=== PATIENT | male | born 2000 ===

== ENCOUNTER 2020-10-20 16:34 | Emergency (ER) | payer SELFPAY ==
[2020-10-20 16:45] VITALS: BP 123/67
== END 2020-10-20 16:41 | disposition left against medical advice (07) ==
LOC: ED 16:34
DX: Z20.2 Contact with and (suspected) exposure to infections with a predominantly sexual mode of transmission (principal); Z53.21 Procedure and treatment not carried out due to patient leaving prior to being seen by health care provider